=== PATIENT | male | born 1935 | race Caucasian/White ===

== ENCOUNTER → 2017-10-12 | Outpatient (CLI) | payer MEDICARE, BC | END | disposition home or self-care (01) | LOC: PCVCCLINIC 10:52 | DX: I25.708 Atherosclerosis of coronary artery bypass graft(s), unspecified, with other forms of angina pectoris (principal); R60.9 Edema, unspecified; I10 Essential (primary) hypertension; E78.00 Pure hypercholesterolemia, unspecified; E11.9 Type 2 diabetes mellitus without complications; I87.2 Venous insufficiency (chronic) (peripheral); Z79.4 Long term (current) use of insulin; G47.33 Obstructive sleep apnea (adult) (pediatric); Z86.718 Personal history of other venous thrombosis and embolism; Z87.891 Personal history of nicotine dependence; Z79.82 Long term (current) use of aspirin; Z79.899 Other long term (current) drug therapy; Z79.84 Long term (current) use of oral hypoglycemic drugs | CPT/HCPCS: 93005; G0463 ==

== ENCOUNTER → 2017-11-08 | Outpatient (CLI) | payer MEDICARE, BC ==
[~2017-11-08] MED LIST: REGADENOSON 0.4 MG/5 ML DISP.SYRIN. IV ONE
--- NOTE | 2017-11-08 17:10 | PCVCIMAG ---
APPROVED REPORT Study performed: 11/08/2017 10:37:12 EXAM: Comprehensive 2D, Doppler, and color-flow Echocardiogram Patient Location: Echo lab Room #: 2Status: routine BSA: 2.15 HR: 46 bpmBP: 130/62 mmHg Rhythm: Bradycardia Other Information Study Quality: Adequate Risk Factors: Cardiac Risk Factors: HTN, Hyperlipidemia, DM Indications Diabetes CAD Hypertension/HDD S/P CABG 2D Dimensions LVEF(%): 47.14 (>50%) IVSd: 11.84 (7-11mm)LVOT Diam: 20.36 (18-24mm) LVDd: 56.24 mm PWd: 10.16 (7-11mm)Ascending Ao: 32.68 (22-36mm) LVDs: 42.77 (25-40mm) Left Atrium: 33.44 (27-40mm) Aortic Root: 25.00 mm LV Single Plane 4CH: 45.22 % LV Single Plane 2CH: 49.83 %Barker's LVEF: 47.53 % Biplane EF: 47.2 % Volumes Left Atrial Volume (Systole) Single Plane 4CH: 76.14 mLSingle Plane 2CH: 62.20 mL Biplane LA Volume: 78.00 mLLA ESV Index: 36.00 mL/m2 Aortic Valve AoV Peak Jesus.: 1.79 m/s AO Peak Gr.: 14.37 mmHgLVOT Max P.99 mmHg AO Mean Gr.: 8.09 mmHg AO V2 Mean: 1.37 m/sLVOT Max V: 1.00 m/s AO V2 VTI: 51.75 cm ITZEL Vmax: 1.82 cm2 Mitral Valve E/A Ratio: 1.0 MV Decel. Time: 131.01 ms MV E Max Jesus.: 0.86 m/s MV A Jesus.: 0.88 m/s IVRT: 110.73 ms TDI E/Lateral E': 7.82E/Medial E': 14.33 Medial E' Jesus.: 0.06 m/s Lateral E' Jesus.: 0.11 m/s Pulmonary Valve PV Peak Jesus.: 1.11 m/sPV Peak Gr.: 4.89 mmHg Pulmonary Vein P Vein S: 0.68 m/sP Vein A: 0.25 m/s P Vein D: 0.49 m/sP Vein A Dur.: 90.0 msec P Vein S/D Ratio: 1.39 Tricuspid Valve TR Peak Jesus.: 2.37 m/s TR Peak Gr.: 22.40 mmHg TV Vmax: 0.67 m/sPA Pressure: 29.00 mmHg Left Ventricle The left ventricle is normal size. There is global mild hypokinesis of the left ventricle. Borderline concentric left ventricular hypertrophy. Left ventricular systolic function is mildly decreased. LVEF is 45-50%.mod hypo inf base mid inf The left ventricular diastolic function is normal. Right Ventricle The right ventricle is normal size. The right ventricular systolic function is normal. Atria Left atrium is mildly dilated. The right atrium size is normal. Aortic Valve Aortic valve is trileaflet. Mild aortic valve sclerosis. No aortic regurgitation is present. There is normal aortic valve leaflet excursion. No hemodynamically significant valvular aortic stenosis. Mitral Valve The mitral valve is normal in structure. Trace to mild mitral regurgitation. No evidence of mitral valve stenosis. Tricuspid Valve The tricuspid valve is normal in structure. Trace to mild tricuspid regurgitation with a PA pressure of 29 mmHg. Pulmonic Valve The pulmonary valve is normal in structure. There is no pulmonic valvular regurgitation. Great Vessels The aortic root is normal in size. The ascending aorta is normal in size. IVC is normal in size and collapses with >50% inspiration Pericardium There is no pericardial effusion. There is no pleural effusion. <Conclusion> The left ventricle is normal size. Left ventricular systolic function is mildly decreased. LVEF is 45-50%.mod hypo inf base mid inf The left ventricular diastolic function is normal. The right ventricle is normal size. Left atrium is mildly dilated. Aortic valve is trileaflet. Mild aortic valve sclerosis. There is normal aortic valve leaflet excursion. No hemodynamically significant valvular aortic stenosis. Trace to mild mitral regurgitation. Trace to mild tricuspid regurgitation with a PA pressure of 29 mmHg. The aortic root is normal in size. There is no pericardial effusion.
--- NOTE | 2017-11-08 18:45 | PCVCIMAG ---
APPROVED REPORT Imaging Protocol: Rest Tc-99m/Stress Tc-99m 1 day Study performed: 11/08/2017 09:38:03 Indication: CAD , Chest pain, Dyspnea, Fatigue Patient Location: Out-Patient Stress Nurse: Aminat Nguyen RN VT Tech:LOWELL RollinsMT Ht: 5 ft 8 in Wt: 220 lbs BSA: 2.13 m2 HR: 50 bpm BP: 154/67 mmHg BMI: 33.4 Medical History Medications: ASA, Atorvastatin, Diltiazem, Insulin, Isosorbide, Metformin, Pantoprazole, Lyrica, Ranexa, Brilinta Allergies: No known drug allergies Cardiac Risk Factors: Age, HTN, Hyperlipidemia, DM, Tobacco History (Former), CAD, HX DVT Pretest Chest Pain Characteristics: No chest pain Physical Disabilities: Legs Meds Held (24 hrs): Isosorbide Resting Data Rest SPECT myocardial perfusion imaging was performed in supine position 45 minutes following the intravenous injection of 10.2 mCi of Tc-99m Sestamibi. Time of rest injection: 1050 Date: 11/08/2017 Administration Route: IV Administration Site: Right AC Pharmacologic Stress Pharmacologic stress test was performed by injecting Regadenoson 0.4 mg IV push over 10-15 seconds immediately followed by the intravenous injection of 32.9 mCi of Tc-99m Sestamibi. Time of stress injection: 1155 Date: 11/08/2017 Administration Route: IV Administration Site: Right AC Gated Stress SPECT was performed 45 minutes after stress injection. The images were gated to evaluate regional wall motion and calculate left ventricular ejection fraction. Stress Test Details Stress Test: Pharmacologic stress testing performed using 0.4 mg of regadenoson per 5 mL given IV over 10 seconds. Reason for pharmacologic stress test: physical limitation. HRMax Heart Rate (APMHR): 140 bpm Resting HR: 50 bpmTarget HR (85% APMHR): 119 bpm Max HR Achieved: 67 bpm % of APMHR: 47 Recovery HR: 67 bpm BP Resting BP: 154/67 mmHg Recovery BP: 132/62 mmHg ECG Resting ECG: Sinus Bradycardia Stress ECG: Sinus Rhythm Arrhythmia: PVCs(RARE) Recovery ECG: Sinus Rhythm Clinical Reason for Termination: Completed protocol Stress Symptoms: None Exercise duration: 0 min 55 sec Symptoms resolved during recovery. Stress ECG Conclusion ECG: Non-ischemic Study Quality Study: Good Study Data Post stress, the left ventricular ejection was 49%.. SSS: 3 SRS: 4 SDS: 1 TID = 1.04. 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 Post stress, the left ventricular ejection was 49%. No prior study available for comparison. Interpreted by: Wilmar Montero MD Electronically Approved: 11/08/2017 16:10:08 <Conclusion> ECG: Non-ischemic
--- NOTE | 2017-11-08 20:05 | PCVCIMAG ---
EXAM: BILATERAL SUPERFICIAL VENOUS DUPLEX INDICATION: Leg pain and swelling. FINDINGS: Right leg: No thrombus in the common femoral, main femoral, or popliteal veins. These veins are compressible. Right Great Saphenous Vein: At the saphenofemoral junction the diameter is 10.0 mm, in the mid thigh it is 3.9 mm, and in the calf it is 6.0 mm. There is not significant venous insufficiency/reflux throughout. Venous insufficiency/reflux duration is 0 seconds. Right Small Saphenous Vein: At the saphenopopliteal junction the diameter is 5.1 mm, and in the calf it is 2.9 mm. There is not significant venous insufficiency/reflux throughout. Venous insufficiency/reflux duration is 0.4 seconds. There is not a cranial extension present. Left leg: No thrombus in the common femoral or main femoral veins. These veins are compressible. The popliteal vein is incompletely compressible secondary to chronic scarring likely related to chronic sequela of a prior episode of deep venous thrombus. Left Great Saphenous Vein: At the saphenofemoral junction the diameter is 12.4 mm, in the mid thigh it is 8.0 mm, and in the calf it is 6.0 mm. There is significant venous insufficiency/reflux throughout. Venous insufficiency/reflux duration is 1.4 seconds. Left Small Saphenous Vein: At the saphenopopliteal junction the diameter is 6.3 mm, and in the calf it is 5.2 mm. There is not significant venous insufficiency/reflux throughout. Venous insufficiency/reflux duration is 0 seconds. There is a cranial extension present. IMPRESSION: Right Great Saphenous Vein: No significant venous insufficiency/reflux is present as noted above. Right Small Saphenous Vein: No significant venous insufficiency/reflux is present as noted above. Left Great Saphenous Vein: Significant venous insufficiency/reflux is present as noted above. Left Small Saphenous Vein: No significant venous insufficiency/reflux is present as noted above. Incidental note is made of chronic scarring in the left popliteal vein likely related to a remote episode of deep venous thrombosis. LOC:[id number]
== END | disposition home or self-care (01) ==
LOC: PCVCIMAG 09:12
PROVIDERS: ATTEND Internal Medicine Cardiovascular Disease
DX: I25.10 Atherosclerotic heart disease of native coronary artery without angina pectoris (principal); I10 Essential (primary) hypertension; E11.9 Type 2 diabetes mellitus without complications; R53.83 Other fatigue; R07.9 Chest pain, unspecified; R06.09 Other forms of dyspnea; Z87.891 Personal history of nicotine dependence
CPT/HCPCS: 78452; 93017; 93306; 93970; A9500; J2785

== ENCOUNTER → 2018-02-05 | Outpatient (CLI) | payer MEDICARE, BC | END | disposition home or self-care (01) | LOC: PCVCCLINIC 15:08 | PROVIDERS: ATTEND Internal Medicine Cardiovascular Disease | DX: I25.708 Atherosclerosis of coronary artery bypass graft(s), unspecified, with other forms of angina pectoris (principal); E78.00 Pure hypercholesterolemia, unspecified; E11.9 Type 2 diabetes mellitus without complications; I10 Essential (primary) hypertension; I87.2 Venous insufficiency (chronic) (peripheral); G47.33 Obstructive sleep apnea (adult) (pediatric); E78.5 Hyperlipidemia, unspecified; Z86.718 Personal history of other venous thrombosis and embolism; Z79.4 Long term (current) use of insulin; Z95.1 Presence of aortocoronary bypass graft; Z87.891 Personal history of nicotine dependence; Z79.82 Long term (current) use of aspirin | CPT/HCPCS: 80061; 93005; G0463 ==